=== PATIENT | female | born 1970 | race Caucasian/White ===

== ENCOUNTER 2017-08-07 14:17 | Emergency (ER) | payer OTHER ==
[2017-08-07] MEDS: MORPHINE SULFATE 4 MG/ML DISP.SYRIN. IM (14:56)
[2017-08-07] MEDS: KETOROLAC 60 MG/2 ML INJ. IM (14:56)
[2017-08-07] MEDS: ONDANSETRON ODT 4 MG TAB.RAPDIS. PO (15:03)
== END 2017-08-07 17:41 | disposition home or self-care (01) ==
LOC: ER 14:17
DX: S30.0XXA Contusion of lower back and pelvis, initial encounter (principal); S20.229A Contusion of unspecified back wall of thorax, initial encounter; G43.909 Migraine, unspecified, not intractable, without status migrainosus; Z90.49 Acquired absence of other specified parts of digestive tract; Z98.51 Tubal ligation status; Z88.5 Allergy status to narcotic agent; W10.9XXA Fall (on) (from) unspecified stairs and steps, initial encounter; Y93.89 Activity, other specified; Y92.89 Other specified places as the place of occurrence of the external cause; Y99.8 Other external cause status
CPT/HCPCS: 72072; 72100; 73502; 96372; 99284; J1885; J2270; Q0162

== ENCOUNTER → 2017-11-17 | Outpatient (CLI) | payer OTHER ==
[2017-08-07 17:25] VITALS: BP 134/76
[~2017-11-17] MED LIST: BETA15CR5 TP; CYCL10TA2 PO; FLUO20CA8 PO; FLUT9.9S NS; LORA0.5T PO; NAPR500T8 PO
[2017-11-17] MEDS: IOHEXOL 300 MG/ML 100ML VIAL. IV ONE (10:06)
--- NOTE | 2017-11-17 12:20 | RAD ---
EXAM: CT Abdomen and Pelvis without and with IV contrast CLINICAL HISTORY: CHRONIC UTI INJ 75ML OMNI 300 NO PREV. COMPARISON: none TECHNIQUE: Helical CT of the abdomen and pelvis was performed before and after the administration of intravenous contrast. Axial, coronal and sagittal reformatted images were generated. PQRS compliance statement - One or more of the following individualized dose reduction techniques were utilized for this study: 1. Automated exposure control 2. Adjustment of the mA and/or kV according to patient size 3. Use of iterative reconstruction technique FINDINGS: Lower chest: Lung bases are clear. Abdomen and Pelvis: The kidneys are normal in size and shape. Punctate left lower pole nonobstructing renal calculus is seen. No definite additional renal tract calculus is identified. Symmetric nephrograms. Subcentimeter left interpolar hypodense renal lesion is too small to characterize. On the delayed phase imaging, no hydronephrosis or ureteral or bladder filling defect. No abnormal bladder wall thickening or masslike enhancement. No focal liver lesion. Cholecystectomy clips are seen. No biliary ductal dilatation. Spleen is unremarkable. Pancreas and adrenal glands are also unremarkable. No small or large bowel dilatation. Moderate colonic stool content is seen. No abdominal or pelvic lymphadenopathy or ascites. Tiny fat-containing periumbilical hernia is seen. Endometrial prominence measures 1.5 cm. Recommend correlation with phase of menstrual cycle and follow up with ultrasound if clinically indicated. Bones: No suspicious osseous lesion is identified. IMPRESSION: 1. Punctate nonobstructing left lower pole renal calculus. 2. No suspicious renal tract mass is identified. The bladder is unremarkable. 3. Tiny fat-containing periumbilical hernia. 4. Prominence of the endometrium measuring 15 mm. This should be correlated with phase of cycle with further follow-up with ultrasound if clinically indicated. Electronically signed by: Oniel Benavides MD (11/17/2017 12:17 PM) [id number]
== END | disposition home or self-care (01) ==
LOC: CT 13:55
PROVIDERS: ATTEND Family Medicine
DX: N20.0 Calculus of kidney (principal); J45.909 Unspecified asthma, uncomplicated; G43.909 Migraine, unspecified, not intractable, without status migrainosus; Z90.49 Acquired absence of other specified parts of digestive tract; Z88.5 Allergy status to narcotic agent
CPT/HCPCS: 74178; Q9967

== ENCOUNTER 2018-08-29 11:18 | Emergency (ER) | payer OTHER ==
[~2018-08-29] VITALS: Ht 165.1 cm; Wt 70.3 kg
[2018-08-29] MEDS ORDERED: ASPIRIN CHEWABLE 81 MG TABLET. PO ONE (11:45)
[2018-08-29] MEDS ORDERED: MORPHINE SULFATE 4 MG/ML VIAL. IV/SQ PRN (11:45)
--- NOTE | 2018-08-29 11:45 | PHYS DOC ---
Past Medical History Past Medical History: Anxiety, GERD, Migraines, Other Additional Past Medical Histor: PANIC ATTACKS Past Surgical History: Cholecystectomy, Tonsillectomy, Tubal ligation Additional Past Surgical Histo: BILAT GREAT TOE Alcohol Use: None Drug Use: None Adult General Chief Complaint Chief Complaint: CHEST PAIN HPI HPI Patient is a 48-year-old female who presents to the emergency department for evaluation. She states that overnight, she had a nightmare that she was having a heart attack, and when she awoke, she had pain in her chest. She describes the pain as a pressure in the center of her chest, some radiation towards her left arm. She has not had any nausea or vomiting or diarrhea. She denies any diaphoresis. She does report some shortness of breath, and exacerbation of her chest discomfort with exertion and movement. She does report a mild pleuritic component to her chest discomfort as well. She has no prior cardiac history and does not have a history of hypertension. There are no alleviating or exacerbating factors to the patient's symptoms, except as noted above.. Assuming a negative troponin, the patient's HEART score is 2. Review of Systems Review of Systems Constitutional: Denies fever or chills [] Eyes: Denies change in visual acuity, redness, or eye pain [] HENT: Denies nasal congestion or sore throat [] Respiratory: Denies cough [] Cardiovascular: No additional information not addressed in HPI [] GI: Denies abdominal pain, nausea, vomiting, bloody stools or diarrhea [] : Denies dysuria or hematuria [] Musculoskeletal: Denies back pain or joint pain [] Integument: Denies rash or skin lesions [] Neurologic: Denies headache, focal weakness or sensory changes [] Endocrine: Denies polyuria or polydipsia [] All other systems were reviewed and found to be within normal limits, except as documented in this note. Current Medications Current Medications Current Medications Medications (Trade) Dose Ordered Sig/Trudy Start Time Stop Time Status Last Admin Dose Admin Aspirin (Children'S Aspirin) 324 mg 1X ONCE 08/29/18 11:45 08/29/18 11:46 DC 08/29/18 11:59 324 MG Morphine Sulfate (Morphine Sulfate) 4 mg PRN Q15MIN PRN 08/29/18 11:45 08/30/18 11:44 08/29/18 11:59 4 MG Allergies Allergies Allergies Coded Allergies Type Severity Reaction Last Updated Verified codeine Allergy Intermediate hives 06/25/14 Yes Physical Exam Physical Exam PHYSICAL EXAM: CONSTITUTIONAL: Well developed, well nourished HEAD: normocephalic, atraumatic EENT: PERRL, EOMI. Conjunctivae normal color, sclerae non-icteric; moist mucous membranes. NECK: Supple, non-tender; no meningismus. LUNGS: Lungs CTA, breathing even and unlabored. Normal air movement. HEART: Regular rate and rhythm, no murmur CHEST: No deformity; there is mild tenderness to palpation to the anterior chest wall, which does reproduce the patient's pain. ABDOMEN: The abdomen is soft, and non-tender, no masses or bruits. EXTREM: Normal ROM; no deformity, no calf tenderness. Normal pulses palpable in all extremities. There is no pedal edema. SKIN: No rash; no diaphoresis NEURO: Alert; normal speech and cognition; CN's grossly intact; strength grossly intact without focal deficit. BACK: No CVA TTP. Current Patient Data Vital Signs Vital Signs Date Time Temp Pulse Resp B/P (MAP) Pulse Ox O2 Delivery O2 Flow Rate FiO2 08/29/18 11:53 86 16 122/65 (84) 96 Room Air 08/29/18 11:30 98.8 98.8 Lab Values Laboratory Tests Test 08/29/18 11:53 White Blood Count 5.9 x10^3/uL (4.0-11.0) Red Blood Count 4.06 x10^6/uL (3.50-5.40) Hemoglobin 8.4 g/dL (12.0-15.5) L Hematocrit 28.1 % (36.0-47.0) L Mean Corpuscular Volume 69 fL (79-100) L Mean Corpuscular Hemoglobin 21 pg (25-35) L Mean Corpuscular Hemoglobin Concent 30 g/dL (31-37) L Red Cell Distribution Width 18.7 % (11.5-14.5) H Platelet Count 468 x10^3/uL (140-400) H Neutrophils (%) (Auto) 58 % (31-73) Lymphocytes (%) (Auto) 27 % (24-48) Monocytes (%) (Auto) 11 % (0-9) H Eosinophils (%) (Auto) 3 % (0-3) Basophils (%) (Auto) 2 % (0-3) Neutrophils # (Auto) 3.5 x10^3uL (1.8-7.7) Lymphocytes # (Auto) 1.6 x10^3/uL (1.0-4.8) Monocytes # (Auto) 0.6 x10^3/uL (0.0-1.1) Eosinophils # (Auto) 0.2 x10^3/uL (0.0-0.7) Basophils # (Auto) 0.1 x10^3/uL (0.0-0.2) Platelet Estimate Pending D-Dimer (Blanca) < 0.27 ug/mlFEU Sodium Level 140 mmol/L (136-145) Potassium Level 3.7 mmol/L (3.5-5.1) Chloride Level 106 mmol/L (98-107) Carbon Dioxide Level 22 mmol/L (21-32) Anion Gap 12 (6-14) Blood Urea Nitrogen 16 mg/dL (7-20) Creatinine 0.7 mg/dL (0.6-1.0) Estimated GFR (Cockcroft-Gault) 89.7 BUN/Creatinine Ratio 23 (6-20) H Glucose Level 95 mg/dL (70-99) Calcium Level 8.8 mg/dL (8.5-10.1) Total Bilirubin 0.2 mg/dL (0.2-1.0) Aspartate Amino Transferase (AST) 11 U/L (15-37) L Alanine Aminotransferase (ALT) 17 U/L (14-59) Alkaline Phosphatase 60 U/L (46-116) Creatine Kinase 38 U/L (26-192) Creatine Kinase MB (Mass) < 0.5 ng/mL (0.0-3.6) Creatine Kinase MB Relative Index % (0-4) Troponin I Quantitative < 0.017 ng/mL (0.000-0.055) TT-Mwe-I-Type Natriuretic Peptide 104 pg/mL (0-124) Total Protein 7.0 g/dL (6.4-8.2) Albumin 3.9 g/dL (3.4-5.0) Albumin/Globulin Ratio 1.3 (1.0-1.7) Laboratory Tests 08/29/18 11:53 Laboratory Tests 08/29/18 11:53 EKG EKG Normal sinus rhythm with a normal rate, normal axis, normal intervals, there are no acute ischemic ST/T changes.[] Radiology/Procedures Radiology/Procedures [PROCEDURE: PORTABLE CHEST 1V EXAM: CHEST 1 VIEW History: Chest pain COMPARISON: 07/29/2015 TECHNIQUE: Single portable radiograph of the chest FINDINGS: The cardiac silhouette is unremarkable. The lungs are clear bilaterally. The costophrenic sulci are clear and well demarcated. IMPRESSION: No radiographic evidence of an acute cardiopulmonary process. ] Course & Med Decision Making Course & Med Decision Making Pertinent Labs and Imaging studies reviewed. (See chart for details) 1:05 PM: The patient's condition remained stable. Pain is improved. I had an extensive discussion with the patient about the limitations of ER cardiac evaluation in definitively ruling out acute coronary syndrome. We discussed limitation of the ER evaluation and a singe ED troponin in r/o AMI, and the risks involved in missed diagnosis of acute coronary syndrome including or permanent debility. I discussed overnight observation for further formal cardiac evaluation to rule out acute coronary syndrome. After expressing understanding of the limitations of ER cardiac evaluation, as well as the risks of missed diagnosis, the patient declined further cardiac evaluation at this time. The patient was mentally competent, and given opportunity to ask questions about the diagnosis and recommended plan of care. I stressed the importance of outpatient follow-up, and returning to the emergency department for new or worsening symptoms, or if the patient is agreeable to undergo further cardiac evaluation. I also discussed the patient's anemia. She states she has a history. She does admit to having irregular menstrual periods, but states that she has been they are heavy. She also denies any did recommend she begin taking iron and multivitamin with her PCP for further evaluation and treatment. Dragon Disclaimer Dragon Disclaimer This electronic medical record was generated, in whole or in part, using a voice recognition dictation system. Departure Departure Impression: Primary Impression: Chest pain Additional Impression: Anemia Disposition: 01 HOME, SELF-CARE Condition: STABLE Referrals: JULIANA BRUNO MD (PCP) Patient Instructions: Anemia, FAQs, Chest Pain (Nonspecific) Additional Instructions: It is important to follow-up with your primary care provider for further evaluation of your underlying anemia. In the meantime, begin taking a multivitamin once daily, as well as iron pills twice daily, as recommended. Scripts Ferrous Sulfate (FERROUS SULFATE) 325 Mg Tablet 1 TAB PO BID, #60 TAB 0 Refills Prov: JUSTINO GOULD MD 08/29/18 Problem Qualifiers JUSTINO GOULD MD Aug 29, 2018 11:45
--- NOTE | 2018-08-29 12:03 | RAD ---
EXAM: CHEST 1 VIEW History: Chest pain COMPARISON: 07/29/2015 TECHNIQUE: Single portable radiograph of the chest FINDINGS: The cardiac silhouette is unremarkable. The lungs are clear bilaterally. The costophrenic sulci are clear and well demarcated. IMPRESSION: No radiographic evidence of an acute cardiopulmonary process. Electronically signed by: Roberto Loomis MD (08/29/2018 12:01 PM) [email or web address]
[2018-08-29 12:13] LABS: CALCIUM 8.8 mg/dL (8.5-10.1); CREATININE 0.7 mg/dL (0.6-1.0); GFR 89.7; POTASSIUM 3.7 mmol/L (3.5-5.1)
[2018-08-29 12:15] LABS: BASO # 0.1 x10^3/uL (0.0-0.2); BASO % 2 % (0-3); EOS # 0.2 x10^3/uL (0.0-0.7); EOS % 3 % (0-3); HEMATOCRIT 28.1 % (36.0-47.0); HEMOGLOBIN 8.4 g/dL (12.0-15.5); LYMPH # 1.6 x10^3/uL (1.0-4.8); LYMPH % 27 % (24-48); MEAN CORPUSCULAR HEMOGLOBIN 21 pg (25-35); MEAN CORPUSCULAR HGB CONC 30 g/dL (31-37); MEAN CORPUSCULAR VOLUME 69 fL (79-100); MONO # 0.6 x10^3/uL (0.0-1.1); MONO % 11 % (0-9); NEUT # 3.5 x10^3uL (1.8-7.7); NEUT % 58 % (31-73); PLATELET COUNT 468 x10^3/uL (140-400); RED BLOOD COUNT 4.06 x10^6/uL (3.50-5.40); RED CELL DISTRIBUTION WIDTH 18.7 % (11.5-14.5); WHITE BLOOD COUNT 5.9 x10^3/uL (4.0-11.0)
[2018-08-29 12:19] LABS: ALBUMIN 3.9 g/dL (3.4-5.0); ALBUMIN/GLOBULIN RATIO 1.3 (1.0-1.7); TOTAL BILIRUBIN 0.2 mg/dL (0.2-1.0)
[2018-08-29 12:31] LABS: CREATINE KINASE 38 U/L (26-192)
[2018-08-29 12:53] VITALS: BP 119/72
[2018-08-29] MEDS ORDERED: FERR325T14 PO (13:07)
--- NOTE | 2018-08-29 13:12 | EKG ---
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
[2018-08-29 14:32] LABS: ANISOCYTOSIS SLIGHT; HYPOCHROMIA MARKED; PLT ESTIMATE INCREASED (ADEQUATE)
[2018-08-29 14:33] LABS: MICROCYTOSIS MARKED; OVALOCYTES FEW; TEAR DROP CELLS FEW
== END 2018-08-29 13:25 | disposition home or self-care (01) ==
LOC: ER 11:18
DX: R07.2 Precordial pain (principal); D64.9 Anemia, unspecified; K21.9 Gastro-esophageal reflux disease without esophagitis; F41.9 Anxiety disorder, unspecified; G43.909 Migraine, unspecified, not intractable, without status migrainosus; Z88.5 Allergy status to narcotic agent
CPT/HCPCS: 36415; 71045; 80053; 82553; 83880; 84484; 85025; 85379; 93005; 96374; 99285; J2270

== ENCOUNTER 2020-02-01 09:20 | Emergency (ER) | payer SELFPAY ==
[~2020-02-01] VITALS: Ht 165.1 cm; Wt 86.0 kg
[~2020-02-01 09:20] MED LIST changes: +FERR325T14 PO; +FLUO20CA20 PO; -FLUO20CA8 PO; +HYDR-3164 PO
[2020-02-01 09:28] VITALS: BP 143/80
[2020-02-01] MEDS ORDERED: oxyCODONE/APAP 5/325 1 TAB TABLET PO ONE (10:00)
--- NOTE | 2020-02-01 10:34 | RAD ---
EXAM: Right foot, 3 views. HISTORY: Pain. Trauma. COMPARISON: None. FINDINGS: 3 views of the right foot are obtained. There is a minimally displaced fifth metatarsal fracture with less than 1 cortical width displacement along the fracture line. There are findings consistent with right hallux valgus repair. There are associated screws and ostomy changes within the distal first metatarsal. There is lateral foot soft tissue swelling. There is a tiny plantar spur. IMPRESSION: Minimally displaced fifth metatarsal fracture. Electronically signed by: Dee Serna MD (02/01/2020 10:31 AM) [id number]
[2020-02-01] MEDS ORDERED: OXYC1TAB15 PO (10:59)
--- NOTE | 2020-02-01 11:00 | ED.ADGEN ---
Past Medical History Past Medical History: No Pertinent History Additional Past Medical Histor: PANIC ATTACKS Past Surgical History: No Surgical History Additional Past Surgical Histo: BILAT GREAT TOE Smoking Status: Never Smoker Alcohol Use: None Drug Use: None General Adult EDM: Chief Complaint: FOOT INJURY PAIN HPI: HPI: Patient is a 49-year-old female who presents to the emergency room complaining of right lateral foot pain. She states that she smacked it on something and heard a large crack. She now has significant pain. She denies any numbness or weakness. She has been able to walk on it but it is been extremely painful. She denies any other trauma. Review of Systems: Review of Systems: Complete ROS is negative unless otherwise documented in HPI Current Medications: Current Medications Medications (Trade) Dose Ordered Sig/Trudy Start Time Stop Time Status Last Admin Dose Admin Oxycodone/ Acetaminophen (Percocet 5/325) 1 tab 1X ONCE 02/01/20 10:00 02/01/20 10:08 DC 02/01/20 10:23 1 TAB Allergies: Allergies: Allergies Coded Allergies Type Severity Reaction Last Updated Verified codeine Allergy Intermediate hives 06/25/14 Yes Physical Exam: PE: General: Awake, alert, NAD. Well Nourished, well hydrated. Cooperative HEENT: Atraumatic, EOMI, PERRL, airway patent, moist oral mucosa Neck: Supple, trachea midline Respiratory: CTA bilaterally, normal effort, no wheezing/crackles CV: RRR, no murmur, cap refill <2 GI: Soft, nondistended, nontender, no masses MSK: Right foot: Tenderness along the fifth metatarsal with swelling and bruising, normal range of motion, intact sensation, intact distal perfusion, 2+ DP pulse Skin: Warm, dry, intact Neuro: A&O x3, speech NL, sensory and motor grossly intact, no focal deficits Psych: Normal affect, normal mood, not suicidal or homicidal Current Patient Data: Vital Signs: Vital Signs Date Time Temp Pulse Resp B/P (MAP) Pulse Ox O2 Delivery O2 Flow Rate FiO2 02/01/20 10:23 20 99 Room Air 02/01/20 09:28 97.1 93 143/80 (101) 97.1 EKG: EKG: [] Heart Score: Risk Factors: Risk Factors: DM, Current or recent (<one month) smoker, HTN, HLP, family history of CAD, obesity. Risk Scores: Score 0 - 3: 2.5% MACE over next 6 weeks - Discharge Home Score 4 - 6: 20.3% MACE over next 6 weeks - Admit for Clinical Observation Score 7 - 10: 72.7% MACE over next 6 weeks - Early Invasive Strategies Radiology/Procedures: Radiology/Procedures: [] Course & Med Decision Making: Course & Med Decision Making Pertinent Labs and Imaging studies reviewed. (See chart for details) Patient is a 49-year-old female presents to the emergency room complaining of right foot pain after trauma. X-ray shows a metatarsal fracture. She was placed in a posterior short leg and crutches. She will follow-up with orthopedic surgery in 1 week. She was given a list of the orthopedic surgeons here at [place] and also sees an orthopedic surgeon and Ameya that she can follow-up with. Patient's test results and vitals while in the ED were fully reviewed and discussed with the patient. Patient is stable and at this time does not need admission to the hospital. We have discussed strict return precautions and the importance of following up with their Primary Care Physician. Patient stated understanding and was given an opportunity to ask any questions. Patient is in agreement with plan. Yoanna Disclaimer: Dragon Disclaimer: This electronic medical record was generated, in whole or in part, using a voice recognition dictation system. Departure Departure Impression: Primary Impression: Metatarsal bone fracture Disposition: 01 DC HOME SELF CARE/HOMELESS Condition: STABLE Referrals: JULIANA BRUNO MD (PCP) Patient Instructions: Metatarsal Fracture, Undisplaced Scripts Oxycodone/Apap 5-325 (PERCOCET 5-325 MG TABLET ) 1 Each Tablet 1 TAB PO PRN Q6HRS PRN for PAIN, #12 TAB 0 Refills Prov: KD CHILD MD 02/01/20 KD CHILD MD Feb 01, 2020 10:59
== END 2020-02-01 11:33 | disposition home or self-care (01) ==
LOC: ER 09:20
DX: S92.351A Displaced fracture of fifth metatarsal bone, right foot, initial encounter for closed fracture (principal); M79.671 Pain in right foot; R60.0 Localized edema; Z98.890 Other specified postprocedural states; W22.8XXA Striking against or struck by other objects, initial encounter; Y93.89 Activity, other specified; Y92.89 Other specified places as the place of occurrence of the external cause; Y99.8 Other external cause status
CPT/HCPCS: 29515; 73630; 99283